=== PATIENT | female | born 1980 | race African-American/Black ===

== ENCOUNTER 2017-07-02 11:39 | Emergency (ER) | payer SELFPAY ==
[2017-07-02] MEDS ORDERED: cloNIDine 0.1 MG TAB ONE (14:01)
[2017-07-02] MEDS ORDERED: Ketorolac Tromethamine 30 MG/ML VIAL ONE (14:11)
[2017-07-02] MEDS ORDERED: NIFEdipine 10 MG CAP PO SCH (14:15)
== END 2017-07-02 14:30 | disposition home or self-care (01) ==
LOC: ERS 11:39
DX: J06.9 Acute upper respiratory infection, unspecified (principal); I10 Essential (primary) hypertension; G43.909 Migraine, unspecified, not intractable, without status migrainosus; F41.9 Anxiety disorder, unspecified; F32.9 Major depressive disorder, single episode, unspecified; F17.210 Nicotine dependence, cigarettes, uncomplicated; Z79.899 Other long term (current) drug therapy
CPT/HCPCS: 96372; J1885

== ENCOUNTER 2017-07-31 10:37 | Emergency (ER) | payer SELFPAY | END 2017-07-31 11:45 | disposition home or self-care (01) | LOC: ERS 10:37 | DX: G56.01 Carpal tunnel syndrome, right upper limb (principal); F41.9 Anxiety disorder, unspecified; F32.9 Major depressive disorder, single episode, unspecified; F17.210 Nicotine dependence, cigarettes, uncomplicated; G43.909 Migraine, unspecified, not intractable, without status migrainosus | CPT/HCPCS: 99283 ==

== ENCOUNTER 2017-08-21 15:49 | Emergency (ER) | payer SELFPAY ==
[2017-08-21 16:29] LABS: #Basophils 0.1 thou/uL (0.0-0.2); #Eosinphils 0.1 thou/uL (0.0-0.7); #Lymphocytes 2.2 thou/uL (1.20-3.40); #Monocytes 0.3 thou/uL (0.11-0.59); #Neutrophils 5.3 thou/uL (1.40-6.50); %Basophils 1.1 % (0.0-1.0); %Eosinophils 1.6 % (0.0-10.0); %Monocytes 4.3 % (0.0-10.0); Hemoglobin 12.3 g/dL (12.0-16.0); Mean Corpuscular HGB CONC 31.9 g/dL (32.0-36.0); Mean Corpuscular Hemoglobin 26.6 pg (27.0-31.0); Mean Corpuscular Volume 83.4 fl (81.0-99.0); Mean Platelet Volume 8.9 fL (7.4-10.4); Platelet Count 223 thou/uL (130-400); RBC Distribution Width 15.7 % (11.5-14.5); Red Blood Cell (RBC) Count 4.62 mill/uL (4.20-5.40)
[2017-08-21 16:55] LABS: ALT (SGPT) 11 U/L (8-55); AST (SGOT) 14 U/L (5-34); Albumin 4.1 g/dL (3.5-5.0); Alkaline Phosphatase 98 U/L (40-150); Anion Gap 10 mmol/L (10-20); BUN (Urea Nitrogen) 9 mg/dL (7.0-18.7); Bilirubin, Total 0.3 mg/dL (0.2-1.2); CKMB 1.1 ng/mL (0-6.6); Calc. Creatinine Clearance 0 mL/min (70-130); Calcium 9.3 mg/dL (7.8-10.44); Carbon Dioxide 27 mmol/L (22-29); Chloride 106 mmol/L (98-107); Estimated GFR-MDRD Greater than 90; Globulin 3.3 g/dL (2.4-3.5); Glucose 130 mg/dL (70-105); Protein, Total 7.4 g/dL (6.0-8.3); Sodium 140 mmol/L (136-145); Troponin I Less than 0.010 ng/mL (< 0.028)
[2017-08-21 17:02] LABS: Potassium 2.9 mmol/L (3.5-5.1)
--- NOTE | 2017-08-21 18:39 | RAD ---
PORTABLE AP CHEST X-RAY 08/21/17 HISTORY: Chest pain and dizziness since yesterday. COMPARISON: 02/26/17. FINDINGS: The cardiac silhouette is magnified by projection but at the upper limits of normal in size. Pulmonar y vasculature is within normal limits. The lungs are clear. There has been no interval change from pr ior study. IMPRESSION: No acute cardiopulmonary process. POS: [facility]
== END 2017-08-21 18:36 | disposition home or self-care (01) ==
LOC: ERS 15:49
DX: R07.89 Other chest pain (principal); I10 Essential (primary) hypertension; G43.909 Migraine, unspecified, not intractable, without status migrainosus; F41.9 Anxiety disorder, unspecified; F32.9 Major depressive disorder, single episode, unspecified; F17.210 Nicotine dependence, cigarettes, uncomplicated
CPT/HCPCS: 36415; 71045; 80053; 82553; 84484; 85025; 93005

== ENCOUNTER 2018-07-31 14:38 | Emergency (ER) | payer SELFPAY ==
--- NOTE | 2018-07-31 15:19 | RAD ---
AP CHEST: History: Left shoulder pain radiating to neck. Date: 07-31-18 Comparison: 08-21-17 FINDINGS: AP chest demonstrates the lungs to be well aerated. No evidence of active intrathoracic disease is se en. No evidence of effusions, pneumonia, or pneumothorax is seen. IMPRESSION: Unremarkable AP view chest. POS: H
[2018-07-31 15:44] LABS: #Basophils 0.2 thou/uL (0.0-0.2); #Eosinphils 0.1 thou/uL (0.0-0.7); #Lymphocytes 2.7 thou/uL (1.20-3.40); #Monocytes 0.5 thou/uL (0.11-0.59); #Neutrophils 6.6 thou/uL (1.40-6.50); %Basophils 1.6 % (0.0-1.0); %Eosinophils 0.6 % (0.0-10.0); %Lymphocytes 27.1 % (21.0-51.0); %Monocytes 4.6 % (0.0-10.0); %Neutrophils 66.1 % (42.0-75.0); Hemoglobin 11.7 g/dL (12.0-16.0); Mean Corpuscular HGB CONC 32.4 g/dL (32.0-36.0); Mean Corpuscular Volume 86.4 fL (78.0-98.0); Mean Platelet Volume 9.4 fL (7.4-10.4); Platelet Count 177 thou/uL (130-400); RBC Distribution Width 15.9 % (11.5-14.5); Red Blood Cell (RBC) Count 4.18 mill/uL (4.20-5.40)
[2018-07-31 16:02] LABS: ALT (SGPT) 13 U/L (8-55); AST (SGOT) 16 U/L (5-34); Albumin 4.1 g/dL (3.5-5.0); Alkaline Phosphatase 99 U/L (40-150); Anion Gap 11 mmol/L (10-20); BUN (Urea Nitrogen) 13 mg/dL (7.0-18.7); Bilirubin, Total 0.2 mg/dL (0.2-1.2); Calc. Creatinine Clearance 0 mL/min (70-130); Carbon Dioxide 23 mmol/L (22-29); Chloride 108 mmol/L (98-107); Estimated GFR-MDRD 79; Globulin 3.3 g/dL (2.4-3.5); Glucose 84 mg/dL (70-105); Protein, Total 7.4 g/dL (6.0-8.3); Sodium 139 mmol/L (136-145)
[2018-07-31 16:05] LABS: Potassium 2.6 mmol/L (3.5-5.1)
[2018-07-31 16:45] LABS: Potassium 3.7 mmol/L (3.5-5.1)
[2018-07-31] MEDS ORDERED: Potassium Bicarbonate/Cit Ac 25 MEQ TAB PO SCH (18:15)
--- NOTE | 2018-08-02 23:03 | EKG ---
Test Reason : Blood Pressure : / mmHG Vent. Rate : 085 BPM Atrial Rate : 085 BPM P-R Int : 132 ms QRS Dur : 080 ms QT Int : 380 ms P-R-T Axes : 055 007 016 degrees QTc Int : 452 ms Normal sinus rhythm Possible Left atrial enlargement Borderline ECG Confirmed by ROSINA WHYTE, MARLENA ([id number]), editorial cartoonist GABRIELA CHRISTOPHER ([id number]) on 08/02/2018 11:03:07 PM Referred By: Confirmed By:MARLENA ALMAGUER MD
== END 2018-07-31 19:41 | disposition home or self-care (01) ==
LOC: ERS 14:38
DX: S46.912A Strain of unspecified muscle, fascia and tendon at shoulder and upper arm level, left arm, initial encounter (principal); E87.6 Hypokalemia; I10 Essential (primary) hypertension; F32.9 Major depressive disorder, single episode, unspecified; F17.210 Nicotine dependence, cigarettes, uncomplicated; G43.909 Migraine, unspecified, not intractable, without status migrainosus; X50.0XXA Overexertion from strenuous movement or load, initial encounter
CPT/HCPCS: 36415; 71045; 80053; 83735; 84484; 85025; 93005; 94760

== ENCOUNTER 2019-01-13 12:41 | Emergency (ER) | payer SELFPAY ==
[2019-01-13 13:52] LABS: #Basophils 0.1 thou/uL (0.0-0.2); #Eosinphils 0.1 thou/uL (0.0-0.7); #Lymphocytes 3.2 thou/uL (1.20-3.40); #Monocytes 0.5 thou/uL (0.11-0.59); #Neutrophils 6.3 thou/uL (1.40-6.50); %Eosinophils 1.1 % (0.0-10.0); %Lymphocytes 30.9 % (21.0-51.0); %Monocytes 5.2 % (0.0-10.0); %Neutrophils 61.8 % (42.0-75.0); Hemoglobin 11.9 g/dL (12.0-16.0); Mean Corpuscular HGB CONC 33.4 g/dL (32.0-36.0); Mean Corpuscular Hemoglobin 30.7 pg (27.0-31.0); Mean Corpuscular Volume 91.8 fL (78.0-98.0); Mean Platelet Volume 8.8 fL (7.4-10.4); Platelet Count 216 thou/uL (130-400); RBC Distribution Width 12.9 % (11.5-14.5); Red Blood Cell (RBC) Count 3.89 mill/uL (4.20-5.40); White Blood Cell (WBC) Count 10.3 thou/uL (4.8-10.8)
[2019-01-13] MEDS ORDERED: Ondansetron PF 4 MG/2 ML Vial ONE (13:54)
[2019-01-13] MEDS ORDERED: Acetaminophen 500 MG TAB ONE (13:54)
[2019-01-13 14:16] LABS: ALT (SGPT) 11 U/L (8-55); AST (SGOT) 11 U/L (5-34); Albumin 3.9 g/dL (3.5-5.0); Alkaline Phosphatase 101 U/L (40-150); Anion Gap 12 mmol/L (10-20); BUN (Urea Nitrogen) 5 mg/dL (7.0-18.7); Bilirubin, Total 0.3 mg/dL (0.2-1.2); Calc. Creatinine Clearance 0 mL/min (70-130); Calcium 8.6 mg/dL (7.8-10.44); Carbon Dioxide 24 mmol/L (22-29); Chloride 106 mmol/L (98-107); Estimated GFR-MDRD Greater than 90; Glucose 94 mg/dL (70-105); Protein, Total 6.9 g/dL (6.0-8.3); Sodium 139 mmol/L (136-145)
[2019-01-13] MEDS ORDERED: Potassium Chloride 20 MEQ TAB ONE (14:31)
--- NOTE | 2019-01-13 14:40 | CT ---
CT OF THE BRAIN WITHOUT CONTRAST: 01/13/19 COMPARISON: 05/08/16 HISTORY: Bodyaches for two days. Terrible headache this morning. TECHNIQUE: Multiple contiguous axial images were obtained in a CT of the brain without contrast. FINDINGS: The brain is normal in morphology and attenuation without focal lesions or confluent areas of infarct ion. There is no evidence of hydrocephalus, intracranial hemorrhage or extra-axial fluid collection. The calvarium and overlying soft tissues are unremarkable. The visualized paranasal sinuses and masto id air cells are well aerated. IMPRESSION: No evidence of acute intracranial abnormality. POS: C
[2019-01-13] MEDS ORDERED: Ketorolac Tromethamine 30 MG/ML VIAL ONE (15:05)
--- NOTE | 2019-01-17 11:02 | EKG ---
Test Reason : Blood Pressure : / mmHG Vent. Rate : 066 BPM Atrial Rate : 066 BPM P-R Int : 140 ms QRS Dur : 078 ms QT Int : 396 ms P-R-T Axes : 054 017 007 degrees QTc Int : 415 ms Normal sinus rhythm Possible Left atrial enlargement Nonspecific T wave abnormality Abnormal ECG Confirmed by ASHLEIGH EAGLE ([id number]), editorial specialist KANDY PAUL ([id number]) on 01/17/2019 11:01:31 AM Referred By: Confirmed By:ASHLEIGH EAGLE
== END 2019-01-13 15:47 | disposition home or self-care (01) ==
LOC: ERS 12:41
DX: E87.6 Hypokalemia (principal); E86.0 Dehydration; M79.10 Myalgia, unspecified site; F41.9 Anxiety disorder, unspecified; F32.9 Major depressive disorder, single episode, unspecified; G43.909 Migraine, unspecified, not intractable, without status migrainosus; I10 Essential (primary) hypertension; Z79.891 Long term (current) use of opiate analgesic; Z79.899 Other long term (current) drug therapy
CPT/HCPCS: 36415; 70450; 80053; 84484; 85025; 93005; 96361; 96374; 96375; J1885; J2405

== ENCOUNTER 2019-04-21 13:28 | Emergency (ER) | payer SELFPAY ==
[2019-04-21 14:36] LABS: #Basophils 0.1 thou/uL (0.0-0.2); #Eosinphils 0.1 thou/uL (0.0-0.7); #Lymphocytes 3.3 thou/uL (1.20-3.40); #Monocytes 0.7 thou/uL (0.11-0.59); #Neutrophils 5.5 thou/uL (1.40-6.50); %Basophils 0.8 % (0.0-1.0); %Eosinophils 1.2 % (0.0-10.0); %Lymphocytes 34.5 % (21.0-51.0); %Monocytes 6.9 % (0.0-10.0); %Neutrophils 56.7 % (42.0-75.0); Hemoglobin 11.3 g/dL (12.0-16.0); Mean Corpuscular HGB CONC 34.3 g/dL (32.0-36.0); Mean Corpuscular Hemoglobin 30.6 pg (27.0-31.0); Mean Corpuscular Volume 89.4 fL (78.0-98.0); Mean Platelet Volume 9.1 fL (7.4-10.4); Platelet Count 180 thou/uL (130-400); RBC Distribution Width 13.1 % (11.5-14.5); White Blood Cell (WBC) Count 9.7 thou/uL (4.8-10.8)
--- NOTE | 2019-04-21 14:50 | RAD ---
RADIOGRAPH CHEST 1 VIEW: DATE: 04/21/2019 HISTORY: 39-year-old female with dyspnea FINDINGS: There are no airspace densities, pulmonary edema, pneumothorax, or cardiomegaly. The lateral costophr enic angles are sharp. IMPRESSION: No acute cardiopulmonary findings.
[2019-04-21 15:00] LABS: ALT (SGPT) 12 U/L (8-55); AST (SGOT) 16 U/L (5-34); Albumin 4.1 g/dL (3.5-5.0); Alkaline Phosphatase 108 U/L (40-110); Anion Gap 12 mmol/L (10-20); BUN (Urea Nitrogen) 7 mg/dL (7.0-18.7); Bilirubin, Total 0.2 mg/dL (0.2-1.2); Calc. Creatinine Clearance 0 mL/min (70-130); Calcium 8.8 mg/dL (7.8-10.44); Carbon Dioxide 23 mmol/L (22-29); Chloride 108 mmol/L (98-107); Estimated GFR-MDRD Greater than 90; Globulin 3.1 g/dL (2.4-3.5); Glucose 82 mg/dL (70-105); Potassium 3.5 mmol/L (3.5-5.1); Protein, Total 7.2 g/dL (6.0-8.3); Sodium 139 mmol/L (136-145)
--- NOTE | 2019-04-25 14:39 | EKG ---
Test Reason : Blood Pressure : / mmHG Vent. Rate : 066 BPM Atrial Rate : 066 BPM P-R Int : 132 ms QRS Dur : 090 ms QT Int : 400 ms P-R-T Axes : 060 022 055 degrees QTc Int : 419 ms Normal sinus rhythm with sinus arrhythmia Possible Left atrial enlargement Nonspecific T wave abnormality Abnormal ECG Confirmed by LEANNE SUTHERLAND DO ([id number]), video editor KANDY PAUL ([id number]) on 04/25/2019 2:39:18 PM Referred By: KOKO Confirmed By:LEANNE SUTHERLAND DO
== END 2019-04-21 15:37 | disposition home or self-care (01) ==
LOC: ERS 13:28
DX: R60.0 Localized edema (principal); I10 Essential (primary) hypertension; G43.909 Migraine, unspecified, not intractable, without status migrainosus; F41.9 Anxiety disorder, unspecified; M79.7 Fibromyalgia; F32.9 Major depressive disorder, single episode, unspecified; F17.210 Nicotine dependence, cigarettes, uncomplicated; Z79.899 Other long term (current) drug therapy
CPT/HCPCS: 36415; 71045; 80053; 83880; 84484; 85025; 93005

== ENCOUNTER 2020-01-04 13:17 | Emergency (ER) | payer BC, OTHER ==
[2020-01-05 15:37] LABS: SARS-CoV-2 MS2 Positive; SARS-CoV-2 N Gene Negative; SARS-CoV-2 S Gene Negative; SARS-CoV-2 orf1ab Negative
== END 2020-01-04 13:54 | disposition home or self-care (01) ==
LOC: ERS 13:17
DX: Z20.828 Contact with and (suspected) exposure to other viral communicable diseases (principal); I10 Essential (primary) hypertension; G43.909 Migraine, unspecified, not intractable, without status migrainosus; F17.210 Nicotine dependence, cigarettes, uncomplicated
CPT/HCPCS: 87635; 99282; U0003

== ENCOUNTER 2020-01-06 19:50 | Emergency (ER) | payer BC, OTHER ==
--- NOTE | 2020-01-06 20:35 | RAD ---
XR Chest 1 View Portable History: Dyspnea Comparison: Radiograph 2019 Findings: Lungs are clear. No pneumothorax or effusion. Mild dextro scoliosis midthoracic spine. No a cute osseous abnormality. Impression: No acute intrathoracic abnormality. No evidence for pneumonia.
== END 2020-01-06 20:55 | disposition home or self-care (01) ==
LOC: ERS 19:50
DX: K02.9 Dental caries, unspecified (principal); K03.81 Cracked tooth; R06.02 Shortness of breath; I10 Essential (primary) hypertension; M79.7 Fibromyalgia; F17.210 Nicotine dependence, cigarettes, uncomplicated; F32.9 Major depressive disorder, single episode, unspecified; F41.9 Anxiety disorder, unspecified; Z79.899 Other long term (current) drug therapy
CPT/HCPCS: 71045; 99284

== ENCOUNTER 2020-01-14 18:20 | Emergency (ER) | payer BC ==
[2020-01-14] MEDS ORDERED: ALPRAZolam 0.25 MG TAB ONE (20:41)
== END 2020-01-14 20:50 | disposition home or self-care (01) ==
LOC: ERS 18:20
DX: F41.9 Anxiety disorder, unspecified (principal); Z60.9 Problem related to social environment, unspecified; I10 Essential (primary) hypertension; K21.9 Gastro-esophageal reflux disease without esophagitis; F17.210 Nicotine dependence, cigarettes, uncomplicated; Z79.899 Other long term (current) drug therapy
CPT/HCPCS: 93005

== ENCOUNTER 2020-02-06 20:45 | Emergency (ER) | payer BC, OTHER | END 2020-02-06 20:51 | disposition home or self-care (01) | LOC: ERS 20:45 | DX: I88.9 Nonspecific lymphadenitis, unspecified (principal); I10 Essential (primary) hypertension; F41.9 Anxiety disorder, unspecified; F32.9 Major depressive disorder, single episode, unspecified; F17.210 Nicotine dependence, cigarettes, uncomplicated; Z79.899 Other long term (current) drug therapy | CPT/HCPCS: 99283 ==

== ENCOUNTER 2020-02-07 11:54 | Emergency (ER) | payer BC, OTHER ==
[2020-02-08 11:54] LABS: SARS-CoV-2 MS2 Positive; SARS-CoV-2 N Gene Negative; SARS-CoV-2 S Gene Negative; SARS-CoV-2 by NAA Not Detected (NotDetected); SARS-CoV-2 orf1ab Negative
== END 2020-02-07 12:05 | disposition home or self-care (01) ==
LOC: ERS 11:54
DX: R05 Cough (principal); Z20.828 Contact with and (suspected) exposure to other viral communicable diseases; I10 Essential (primary) hypertension; M79.7 Fibromyalgia; F41.9 Anxiety disorder, unspecified; F32.9 Major depressive disorder, single episode, unspecified; F17.210 Nicotine dependence, cigarettes, uncomplicated
CPT/HCPCS: 87635; 99283; U0003

== ENCOUNTER 2020-05-25 13:15 | Outpatient (CLI) | payer BC ==
--- NOTE | 2020-05-25 13:51 | MMO ---
Bilateral MAMMO Bilat Screen [facility]. CLINICAL HISTORY: Patient is 40 years old and is seen for screening. The patient has the following family history of breast cancer: maternal aunt, malignant (generic). The patient has no personal history of cancer. VIEWS: The views performed were: bilateral craniocaudal with tomosynthesis and bilateral mediolateral oblique with tomosynthesis. This study has been interpreted with the assistance of computer-aided detection. MAMMOGRAM FINDINGS: The breasts are heterogeneously dense, which could obscure a lesion on mammography. There are no suspicious masses, suspicious calcifications, or new areas of architectural distortion. IMPRESSION: THERE IS NO MAMMOGRAPHIC EVIDENCE OF MALIGNANCY. A ROUTINE FOLLOW-UP MAMMOGRAM IN 1 YEAR IS RECOMMENDED. THE RESULTS OF THIS EXAM WERE SENT TO THE PATIENT. ACR BI-RADS Category 1 - Negative MAMMOGRAPHY NOTE: 1. A negative mammogram report should not delay a biopsy if a dominant of clinically suspicious mass is present. 2. Approximately 10% to 15% of breast cancers are not detected by mammography. 3. Adenosis and dense breasts may obscure an underlying neoplasm. Reported by: ARIELLE GRANGER MD Electonically Signed: [id number]
== END 2020-05-25 13:16 | disposition home or self-care (01) ==
LOC: BICMAMMO 13:15
PROVIDERS: ATTEND Nurse Practitioner Family
DX: Z12.31 Encounter for screening mammogram for malignant neoplasm of breast (principal); Z80.3 Family history of malignant neoplasm of breast
CPT/HCPCS: 77063; 77067

== ENCOUNTER 2022-03-22 17:28 | Emergency (ER) | payer BC ==
[2022-03-22] MEDS ORDERED: hydrOXYzine 25 MG TAB ONE (17:40)
[2022-03-22 18:31] LABS: #Basophils 0.1 thou/uL (0.0-0.2); #Eosinphils 0.2 thou/uL (0.0-0.7); #Lymphocytes 2.8 thou/uL (1.20-3.40); #Monocytes 0.6 thou/uL (0.11-0.59); #Neutrophils 8.8 thou/uL (1.40-6.50); %Basophils 0.5 % (0.0-1.0); %Eosinophils 1.3 % (0.0-10.0); %Lymphocytes 22.5 % (21.0-51.0); %Neutrophils 70.8 % (42.0-75.0); Hemoglobin 11.7 g/dL (12.0-16.0); Mean Corpuscular Hemoglobin 28.5 pg (27.0-31.0); Mean Corpuscular Volume 86.3 fL (78.0-98.0); Mean Platelet Volume 8.9 fL (7.4-10.4); Platelet Count 263 thou/uL (130-400); RBC Distribution Width 14.6 % (11.5-14.5); Red Blood Cell (RBC) Count 4.12 mill/uL (4.20-5.40); White Blood Cell (WBC) Count 12.4 thou/uL (4.8-10.8)
[2022-03-22 18:54] LABS: ALT (SGPT) 13 U/L (8-55); AST (SGOT) 14 U/L (5-34); Alkaline Phosphatase 105 U/L (40-110); Anion Gap 12 mmol/L (10-20); BUN (Urea Nitrogen) 10 mg/dL (7.0-18.7); Bilirubin, Total 0.3 mg/dL (0.2-1.2); CK (CPK) 116 U/L (29-168); Calc. Creatinine Clearance 0 mL/min (70-130); Calcium 8.7 mg/dL (7.8-10.44); Carbon Dioxide 22 mmol/L (22-29); Chloride 108 mmol/L (98-107); Estimated GFR 82; Globulin 3.6 g/dL (2.4-3.5); Glucose 98 mg/dL (70-105); Lipase 47 U/L (8-78); Protein, Total 7.6 g/dL (6.0-8.3); Sodium 139 mmol/L (136-145)
[2022-03-22 19:06] LABS: Potassium 2.7 mmol/L (3.5-5.1)
[2022-03-22] MEDS ORDERED: Potassium Chloride 20 MEQ TAB ONE (19:27)
== END 2022-03-22 19:30 | disposition home or self-care (01) ==
LOC: ERS 17:28
DX: F41.9 Anxiety disorder, unspecified (principal); I10 Essential (primary) hypertension; K21.9 Gastro-esophageal reflux disease without esophagitis; F17.210 Nicotine dependence, cigarettes, uncomplicated; Z79.899 Other long term (current) drug therapy
CPT/HCPCS: 36415; 71045; 80053; 82550; 83690; 84484; 85025; 93005

== ENCOUNTER 2022-05-26 20:21 | Inpatient (IN) | payer BC, OTHER ==
[~2022-05-26 20:21] MED LIST: Iopamidol-370 76% 500 ML 1 ML ONE
[2022-05-26 20:54] LABS: #Basophils 0.1 thou/uL (0.0-0.2); #Eosinphils 0.1 thou/uL (0.0-0.7); #Lymphocytes 4.3 thou/uL (1.20-3.40); #Monocytes 0.7 thou/uL (0.11-0.59); #Neutrophils 7.9 thou/uL (1.40-6.50); %Basophils 0.7 % (0.0-1.0); %Eosinophils 0.6 % (0.0-10.0); %Lymphocytes 32.7 % (21.0-51.0); %Monocytes 5.6 % (0.0-10.0); %Neutrophils 60.4 % (42.0-75.0); Hemoglobin 11.1 g/dL (12.0-16.0); Mean Corpuscular HGB CONC 32.6 g/dL (32.0-36.0); Mean Corpuscular Volume 82.7 fl (78.0-98.0); Mean Platelet Volume 8.7 fL (7.4-10.4); Platelet Count 229 10x3/uL (130-400); RBC Distribution Width 13.9 % (11.5-14.5); Red Blood Cell (RBC) Count 4.11 mill/uL (4.20-5.40)
[2022-05-26 21:15] LABS: ALT (SGPT) 12 U/L (8-55); AST (SGOT) 12 U/L (5-34); Alkaline Phosphatase 106 U/L (40-110); Anion Gap 12 mmol/L (10-20); BUN (Urea Nitrogen) 9 mg/dL (7.0-18.7); Bilirubin, Total 0.3 mg/dL (0.2-1.2); Calc. Creatinine Clearance 0 mL/min (70-130); Calcium 9.1 mg/dL (7.8-10.44); Carbon Dioxide 24 mmol/L (22-29); Chloride 106 mmol/L (98-107); Estimated GFR 80; Globulin 3.8 g/dL (2.4-3.5); Glucose 86 mg/dL (70-105); Potassium 2.7 mmol/L (3.5-5.1); Protein, Total 7.8 g/dL (6.0-8.3); Sodium 139 mmol/L (136-145)
[2022-05-26] MEDS ORDERED: Aspirin Chewable 81 MG TAB ONE (21:18)
[2022-05-26] MEDS ORDERED: Nitroglycerin 2% Ointment 1 INCH/1 GM Packet ONE (21:18)
[2022-05-26] MEDS ORDERED: Potassium Chloride 20 MEQ TAB ONE (22:07)
[2022-05-26] MEDS ORDERED: hydrALAZINE 20 MG/ML VIAL ONE (22:07)
[2022-05-26] MEDS ORDERED: Ondansetron PF 4 MG/2 ML Vial IVP PRN (22:12)
[2022-05-26] MEDS ORDERED: Nitroglycerin 0.4 MG TAB (25 Tab Bottle) SL PRN (22:15)
[2022-05-26 22:48] LABS: BHCG - Serum Negative (NEGATIVE); Pregs Control Background? CLEAR/WHITE (CLR/WHITE); Pregs Control Bar Appear? YES (CONTROL BAR)
[2022-05-26 22:59] LABS: Magnesium 1.6 mg/dL (1.6-2.6)
[2022-05-26 23:22] LABS: SARS-CoV-2 NAA Rapid Test Not Detected (NotDetected)
[2022-05-27 00:29] LABS: Bilirubin Negative (Negative); Blood, Urine Negative (Negative); Clarity Turbid (Clear); Glucose, Urine (Dipstick) Normal (Negative); Ketone, Urine Negative (Negative); Leukocyte 75 Leu/uL (Negative); Nitrite Negative (Negative); Protein, Urine (Dipstick) Negative (Neg-Trace); RBC/HPF 0-3 HPF (0-3); Specific Gravity, Urine 1.006 (1.002-1.036); Urobilinogen Normal mg/dL (Less than 2)
[2022-05-27 00:31] LABS: Bacteria/HPF 1+ HPF (None Seen)
[2022-05-27 00:32] LABS: Pregnancy Test - Urine (BHCG) Negative (Negative); Pregu Control Background? CLEAR/WHITE (CLR/WHITE); Pregu Control Bar Appear? YES (CONTROL BAR); Specific Gravity 1.006 (1.002-1.036)
[2022-05-27 00:35] LABS: Troponin I 0.011 ng/mL (< 0.028)
[2022-05-27 03:28] LABS: #Basophils 0.1 thou/uL (0.0-0.2); #Eosinphils 0.1 thou/uL (0.0-0.7); #Lymphocytes 3.9 thou/uL (1.20-3.40); #Monocytes 0.7 thou/uL (0.11-0.59); #Neutrophils 8.7 thou/uL (1.40-6.50); %Basophils 0.8 % (0.0-1.0); %Eosinophils 0.5 % (0.0-10.0); %Lymphocytes 28.7 % (21.0-51.0); %Monocytes 5.4 % (0.0-10.0); %Neutrophils 64.6 % (42.0-75.0); Mean Corpuscular HGB CONC 34.5 g/dL (32.0-36.0); Mean Corpuscular Hemoglobin 28.4 pg (27.0-31.0); Mean Corpuscular Volume 82.4 fl (78.0-98.0); Mean Platelet Volume 8.7 fL (7.4-10.4); Platelet Count 202 10x3/uL (130-400); RBC Distribution Width 13.8 % (11.5-14.5); Red Blood Cell (RBC) Count 3.53 mill/uL (4.20-5.40); White Blood Cell (WBC) Count 13.4 10x3/uL (4.8-10.8)
[2022-05-27 03:33] LABS: Troponin I 0.012 ng/mL (< 0.028)
[2022-05-27 03:35] LABS: Anion Gap 14 mmol/L (10-20); BUN (Urea Nitrogen) 9 mg/dL (7.0-18.7); Calc. Creatinine Clearance 0 mL/min (70-130); Calcium 8.5 mg/dL (7.8-10.44); Carbon Dioxide 21 mmol/L (22-29); Chloride 106 mmol/L (98-107); Estimated GFR 99; Glucose 90 mg/dL (70-105); Magnesium 1.7 mg/dL (1.6-2.6); Potassium 2.7 mmol/L (3.5-5.1); Sodium 138 mmol/L (136-145)
[2022-05-27] MEDS ORDERED: Magnesium Oxide 400 MG TAB PO SCH (04:30)
[2022-05-27] MEDS ORDERED: Potassium Chloride 20 MEQ in Premix Bag 1 BAG IVPB SCH ×2 (04:30→08:15)
[2022-05-27] MEDS ORDERED: Potassium Chloride 20 MEQ/100 ML PREMIX BAG ONE ×2 (05:47→07:58)
[2022-05-27] MEDS ORDERED: Potassium Chloride 20 MEQ TAB ONE (08:29)
[2022-05-27] MEDS: Carvedilol 25 MG TAB PO SCH ×2 (08:31→17:17)
[2022-05-27] MEDS: Potassium Chloride 20 MEQ TAB PO SCH ×2 (08:31→17:17)
[2022-05-27] MEDS: Losartan 25 MG TAB PO SCH (09:04)
[2022-05-27 15:26] VITALS: BMI 32.3
[2022-05-27] MEDS ORDERED: FLU VACC QS2022-23(6MOS UP)/PF 60 MCG/0.5 ML SYRINGE IM ONE (15:45)
[2022-05-27] MEDS ORDERED: Potassium Chloride 20 MEQ TAB PO SCH (17:00)
[2022-05-27] MEDS: Acetaminophen 325 MG TAB PO PRN (18:55)
[2022-05-27] MEDS: busPIRone HCl 10 MG TAB PO SCH (20:43)
[2022-05-27] MEDS: cloNIDine 0.1 MG TAB PO PRN (20:45)
[2022-05-28 05:04] LABS: #Eosinphils 0.1 thou/uL (0.0-0.7); #Lymphocytes 3.4 thou/uL (1.20-3.40); #Monocytes 0.8 thou/uL (0.11-0.59); #Neutrophils 7.2 thou/uL (1.40-6.50); %Basophils 0.3 % (0.0-1.0); %Eosinophils 0.8 % (0.0-10.0); %Lymphocytes 29.5 % (21.0-51.0); %Monocytes 6.8 % (0.0-10.0); %Neutrophils 62.5 % (42.0-75.0); Mean Corpuscular HGB CONC 31.5 g/dL (32.0-36.0); Mean Corpuscular Hemoglobin 26.4 pg (27.0-31.0); Mean Corpuscular Volume 83.9 fl (78.0-98.0); Mean Platelet Volume 9.4 fL (7.4-10.4); Platelet Count 198 10x3/uL (130-400); White Blood Cell (WBC) Count 11.5 10x3/uL (4.8-10.8)
[2022-05-28 05:26] LABS: Anion Gap 10 mmol/L (10-20); BUN (Urea Nitrogen) 11 mg/dL (7.0-18.7); Calc. Creatinine Clearance 121 mL/min (70-130); Calcium 8.4 mg/dL (7.8-10.44); Carbon Dioxide 21 mmol/L (22-29); Cardiac Risk 2.5 (Less than 4.5); Chloride 110 mmol/L (98-107); Cholesterol 135 mg/dl (< 200 Desired); Estimated GFR 94; Glucose 105 mg/dL (70-105); HDL Cholesterol 54 mg/dL (>60 Neg Risk); LDL Cholesterol, Calculated 68 mg/dL; Magnesium 1.9 mg/dL (1.6-2.6); Potassium 3.1 mmol/L (3.5-5.1); Sodium 138 mmol/L (136-145); Triglycerides 65 mg/dL (Less than 150)
[2022-05-28] MEDS ORDERED: ADENOSINE 60 MG/20 ML VIAL ONE (08:32)
[2022-05-28] MEDS: Potassium Chloride 20 MEQ TAB PO SCH ×2 (08:44→16:04)
[2022-05-28] MEDS: Losartan 25 MG TAB PO SCH (08:44)
[2022-05-28] MEDS: busPIRone HCl 10 MG TAB PO SCH ×3 (08:44→21:17)
[2022-05-28] MEDS: Carvedilol 25 MG TAB PO SCH ×2 (09:55→15:31)
[2022-05-28] MEDS: cloNIDine 0.1 MG TAB PO PRN ×2 (13:43→21:17)
[2022-05-29] MEDS ORDERED: hydrALAZINE 25 MG TAB PO SCH (01:45)
[2022-05-29] MEDS: cloNIDine 0.1 MG TAB PO PRN (04:09)
[2022-05-29 04:53] LABS: Anion Gap 13 mmol/L (10-20); BUN (Urea Nitrogen) 7 mg/dL (7.0-18.7); Calc. Creatinine Clearance 121 mL/min (70-130); Calcium 8.9 mg/dL (7.8-10.44); Carbon Dioxide 19 mmol/L (22-29); Chloride 109 mmol/L (98-107); Estimated GFR 96; Glucose 88 mg/dL (70-105); Magnesium 1.6 mg/dL (1.6-2.6); Potassium 2.9 mmol/L (3.5-5.1); Sodium 138 mmol/L (136-145)
[2022-05-29] MEDS ORDERED: Potassium Chloride 20 MEQ in Premix Bag 1 BAG IVPB SCH (07:31)
[2022-05-29] MEDS: Losartan 25 MG TAB PO SCH (08:46)
[2022-05-29] MEDS: Carvedilol 25 MG TAB PO SCH (08:46)
[2022-05-29] MEDS: busPIRone HCl 10 MG TAB PO SCH ×3 (08:47→21:01)
[2022-05-29] MEDS: Potassium Chloride 20 MEQ TAB PO SCH ×3 (08:47→21:00)
[2022-05-29] MEDS ORDERED: Hydrochlorothiazide 25 MG TAB PO SCH (09:00)
[2022-05-29] MEDS: Acetaminophen 325 MG TAB PO PRN (09:53)
[2022-05-29] MEDS ORDERED: Labetalol HCl 100 MG TAB PO SCH ×2 (11:30→21:00)
[2022-05-29] MEDS ORDERED: Spironolactone 100 MG TAB PO SCH (11:30)
[2022-05-29] MEDS ORDERED: Magnesium 2 GM/50 ML(in water) 2 GM in Premix Bag 1 BAG IVPB SCH (13:45)
[2022-05-29] MEDS ORDERED: Amlodipine 10 MG TAB PO SCH (17:30)
[2022-05-29 17:50] LABS: Anion Gap 13 mmol/L (10-20); BUN (Urea Nitrogen) 13 mg/dL (7.0-18.7); Calc. Creatinine Clearance 94 mL/min (70-130); Carbon Dioxide 20 mmol/L (22-29); Chloride 106 mmol/L (98-107); Estimated GFR 70; Glucose 87 mg/dL (70-105); Potassium 3.1 mmol/L (3.5-5.1); Sodium 136 mmol/L (136-145)
[2022-05-29] MEDS ORDERED: Minoxidil 2.5 MG TAB PO SCH ×2 (18:15→21:00)
[2022-05-30 05:06] LABS: Iron Binding Capacity, Total 358 mcg/dL (265-497)
[2022-05-30 05:07] LABS: Iron 21 ug/dL (50-170)
[2022-05-30 05:11] LABS: Anion Gap 13 mmol/L (10-20); BUN (Urea Nitrogen) 14 mg/dL (7.0-18.7); Calc. Creatinine Clearance 85 mL/min (70-130); Calcium 8.6 mg/dL (7.8-10.44); Carbon Dioxide 16 mmol/L (22-29); Chloride 112 mmol/L (98-107); Estimated GFR 63; Glucose 109 mg/dL (70-105); Potassium 3.7 mmol/L (3.5-5.1); Sodium 137 mmol/L (136-145)
[2022-05-30] MEDS ORDERED: Labetalol HCl 100 MG TAB PO SCH (08:00)
[2022-05-30] MEDS ORDERED: Iron, Sodium Ferric Gluconate 250 MG in Sodium Chloride 0.9% 250 ML 250 ML IVPB SCH (09:00)
[2022-05-30] MEDS ORDERED: Amlodipine 10 MG TAB PO SCH (09:00)
[2022-05-30] MEDS: Spironolactone 100 MG TAB PO SCH (09:44)
[2022-05-30] MEDS: busPIRone HCl 10 MG TAB PO SCH ×3 (09:44→20:26)
[2022-05-30] MEDS: Losartan 25 MG TAB PO SCH (09:44)
[2022-05-30] MEDS ORDERED: methylPREDNISolone Sod Succ/PF 125 MG/2 ML VIAL IVP SCH (14:15)
[2022-05-30] MEDS ORDERED: diphenhydrAMINE 25 MG in Sodium Chloride 0.9% 50 ML IVPB SCH (14:15)
[2022-05-30] MEDS ORDERED: Labetalol HCl 100 MG/20 ML VIAL SLOW IVP PRN (17:53)
[2022-05-30] MEDS ORDERED: Labetalol HCl 100 MG/20 ML VIAL ONE (18:06)
[2022-05-30] MEDS: ALPRAZolam 0.5 MG TAB PO PRN (18:07)
[2022-05-30] MEDS: Labetalol HCl 100 MG TAB PO SCH (20:26)
[2022-05-31] MEDS: cloNIDine 0.1 MG TAB PO PRN (00:16)
[2022-05-31] MEDS: Labetalol HCl 100 MG TAB PO SCH ×2 (10:06→14:15)
[2022-05-31] MEDS: Losartan 25 MG TAB PO SCH (10:06)
[2022-05-31] MEDS: Spironolactone 100 MG TAB PO SCH (10:07)
[2022-05-31] MEDS: busPIRone HCl 10 MG TAB PO SCH ×2 (10:07→14:15)
[2022-05-31 10:24] LABS: Anion Gap 13 mmol/L (10-20); BUN (Urea Nitrogen) 18 mg/dL (7.0-18.7); Calc. Creatinine Clearance 88 mL/min (70-130); Calcium 9.1 mg/dL (7.8-10.44); Carbon Dioxide 18 mmol/L (22-29); Chloride 111 mmol/L (98-107); Estimated GFR 66; Glucose 129 mg/dL (70-105); Potassium 3.4 mmol/L (3.5-5.1); Sodium 139 mmol/L (136-145)
[2022-05-31] MEDS ORDERED: Spironolactone 100 MG TAB PO SCH (10:45)
[2022-05-31] MEDS: Acetaminophen 325 MG TAB PO PRN (12:18)
[2022-05-31] MEDS: ALPRAZolam 0.5 MG TAB PO PRN (12:18)
[2022-05-31 12:39] VITALS: BP 177/98; TEMP 97.6
[2022-06-01] MEDS ORDERED: Spironolactone 100 MG TAB PO SCH (08:00)
== END 2022-05-31 14:50 | disposition home or self-care (01) | DRG 305 ==
LOC: ERS 20:21 → ERHOLD 22:12 → 2NO 05-27 14:45 → OBSVTOIN 05-28 16:23
PROVIDERS: ADMIT Internal Medicine; ATTEND Internal Medicine
DX: I16.0 Hypertensive urgency (principal); I47.29 Other ventricular tachycardia; E87.20 Acidosis, unspecified; I10 Essential (primary) hypertension; Z20.822 Contact with and (suspected) exposure to COVID-19; K21.9 Gastro-esophageal reflux disease without esophagitis; D64.9 Anemia, unspecified; M79.7 Fibromyalgia; F41.9 Anxiety disorder, unspecified; F32.A Depression, unspecified; F43.10 Post-traumatic stress disorder, unspecified; F17.210 Nicotine dependence, cigarettes, uncomplicated; E87.6 Hypokalemia; E83.42 Hypomagnesemia; D50.9 Iron deficiency anemia, unspecified; Z88.0 Allergy status to penicillin; Z88.1 Allergy status to other antibiotic agents; Z79.899 Other long term (current) drug therapy; Z68.32 Body mass index [BMI] 32.0-32.9, adult
CPT/HCPCS: 36415; 71045; 71275; 74174; 78452; 80048; 80053; 80061; 81003; 81015; 81025; 82088; 82728; 83540; 83550; 83735; 84244; 84484; 84703; 85025; 93005; 93017; 96374; A9500; J0153; J0360; J1200; J2916; J2930; J3475; J3480; J7050; Q9967; U0002